=== PATIENT | male | born 1950 | race Caucasian/White ===

== ENCOUNTER 2023-03-02 09:42 | Outpatient (CLI) | payer MEDICARE, BC, SELFPAY ==
[2023-03-02 10:29] LABS: Appearance Urine Clear (Clear); Bilirubin Urine Negative (Negative); Blood Urine Negative (Negative); Color Urine Yellow (Yellow); Glucose Urine UA Negative (Negative); Ketones Urine Negative (Negative); Leukocyte Esterase Ur Negative LEU/UL (NEGATIVE); Nitrate Urine Negative (Negative); Protein Urine Negative (Negative); Specific Grav Ur 1.024 (1.001-1.035); Urobilinogen Urine 0.2 mg/dL (<2.0)
[2023-03-02 10:38] LABS: Add Urine Microscopic? NO
[2023-03-02 12:18] LABS: Alanine Aminotransferase 36 U/L (6-50); Albumin Level 4.9 g/dL (3.5-5.1); Alkaline Phosphatase 41 U/L (38-126); Anion Gap 10 mmol/L (8-16); Aspartate Amino Transferase 44 U/L (17-59); Blood Urea Nitrogen 21 mg/dL (9-20); Calcium 9.1 mg/dL (8.4-10.2); Carbon Dioxide 28 mmol/L (22-30); Chloride 99 mmol/L (98-107); Cholesterol 124 mg/dL (0-200); Estimated Glomerular Filt Rate > 60; Glucose 146 mg/dL (65-110); HDL Direct 30 mg/dL; Potassium 4.3 mmol/L (3.4-5.0); Sodium 137 mmol/L (137-145); Triglycerides 136 mg/dL (<150)
[2023-03-02 12:35] LABS: LDL Cholesterol Direct 72 mg/dL
[2023-03-02 12:52] LABS: Thyroid Stimulating Hormone 0.758 uIU/mL (0.465-4.680)
[2023-03-02 13:27] LABS: Folic Acid 17.8 ng/mL (2.76->20)
== END 2023-03-02 09:43 | disposition home or self-care (01) ==
LOC: ANHLAB 09:47
PROVIDERS: PCP Family Medicine; Visit Provider Nurse Practitioner Family
DX: R73.01 Impaired fasting glucose (principal); I10 Essential (primary) hypertension; E78.2 Mixed hyperlipidemia; R35.1 Nocturia
CPT/HCPCS: 36415; 80048; 80061; 80076; 81003; 82607; 82746; 83036; 84153; 84443

== ENCOUNTER → 2024-10-17 15:53 | Outpatient (CLI) | payer MEDICARE, BC, SELFPAY ==
--- NOTE | ~2024-10-17 | XR_ITS ---
XR hand RT min 3V Ordering provider: Adalberto Mclain MD History: . M79.641 - Pain in right hand . Comparison: None. FINDINGS: BONES: No acute fracture or dislocation. Cystic area in the capitate bone. Periarticular osteopenia. JOINT SPACES: Narrowing of the proximal and distal interphalangeal joints. Erosive changes seen in th e distal epiphysis of the proximal phalanx of the middle finger similar appearances seen in the dista l interphalangeal joints. SOFT TISSUES: Normal. IMPRESSION: No acute osseous abnormality right hand. Polyarticular narrowing of the joint spaces with erosive changes which may indicate erosive osteoarth ritis versus rheumatoid arthritis. Clinical correlation and further evaluation advised. Reviewed, dictated and finalized at location A. IMPRESSION: No acute osseous abnormality right hand. Polyarticular narrowing of the joint spaces with erosive changes which may gianluca serena erosive osteoarthritis versus rheumatoid arthritis. Clinical correlation a nd further evaluation advised.
--- OUTSIDE RECORDS SUMMARY | 2024-10-17 17:05 | XMS_ITS | Clinical Summary ---
Author Organization [facility] Address Formerly [facility] [place] [address] Care Team Providers Care Family Medicine Physician Assistant Name Role Phone Adalberto Mclain MD Primary Care Provider Allergies Active Allergy Reactions Criticality Noted Date Comments Aspirin Sneezing 07/10/2023 Medications COMBIGAN 0.2-0.5 % ophthalmic solution INT 1 GTT IN OU BID 5 02/26/2019 Active AZOPT 1 % ophthalmic suspension INT 1 GTT INTO LEFT EYE BID UTD 5 10/12/2018 Active dutasteride 0.5 MG capsule TAKE ONE CAPSULE BY MOUTH ONCE A DAY 11 03/10/2019 Active LOTEMAX 0.5 % ophthalmic gel INT 1 GTT CARLITOS TID 1 12/26/2018 Active simvastatin 40 MG tablet Take 40 mg by mouth nightly at bedtime. 11 03/09/2019 Active Active Problems No known active problems Immunizations Immunization Administration Dates Next Due Tdap (Boostrix) 07/10/2023 Family History Medical History Relation Comments Suicide Brother 1 Pancreatic Cancer Brother 2 Coronary artery disease Brother 3 Heart Attack Father Diabetes Mother Hypertension Mother Stroke Mother Hyperlipidemia Sister Hypertension Sister Lupus Sister Stroke Sister Relation Status Comments Brother 1 Brother 2 Brother 3 Father Mother Sister Social History Tobacco Use Types Packs/Day Years Used Date Smoking Tobacco: Former Smokeless Tobacco: Never Tobacco Cessation:Counseling Given: Not Answered Alcohol Use Standard Drinks/Week Comments No 0 (1 standard drink = 0.6 oz pur e alcohol) AUDIT-C Answer Date Recorded Frequency of Alcohol Consumption Never 04/24/2019 Average Number of Drinks Not on file 019 Frequency of Binge Drinking Not on file 03/28 Sex and Gender Information Value Date Recorded Sex Assigned at Not on file Legal Sex Male 6:31 PM CDT Gender Identity Not on file Sexual Orientation Not on file Last Filed Vital Signs Vital Sign Reading Time Taken Comments Blood Pressure 132/79 07/10/2023 3:30 PM VINYL DIPPER Pulse 91 07/10/2023 3:30 PM VINYL DIPPER Temperature 36.1 C (97 F) 07/10/2023 2:59 PM VINYL DIPPER Respiratory Rate 18 07/10/2023 3:30 PM VINYL DIPPER Oxygen Saturation 94% 07/10/2023 3:30 PM VINYL DIPPER Inhaled Oxygen Concentration - - Weight 81.4 kg (179 lb 7.3 oz) 07/10/2023 2:59 P M VINYL DIPPER Height 177.8 cm (5' 10 ) 07/10/2023 2:59 PM VINYL DIPPER Body Mass Index 25.75 07/10/2023 2:59 PM VINYL DIPPER Plan of Treatment Health Maintenance Due Date Last Done Comments Diabetes: Retinopathy Eye Exam 1970 Hepatitis C 1970 Pneumococcal Vaccine: 50+ Years (1 of 2 - PCV) 12/13/1971 Zoster Vaccines (1 of 2) 2002 Annual Medicare Wellness Visit 2017 COVID-19 Vaccine (3 - 2023-2 5 season) 2024 09/04/2020, 08/07/2020 Hemoglobin A1C 05/09/2024 11/07/2023, 06/28/2023, 03/09/2021 Kidney Health Evaluation 11/06/2024 11/07/2023 Lipid Panel 11/06/2024 11/07/2023, 03/09/2021, 11/28/2017 RSV Immunization or 60+ Years (1 - 1-dose 75+ series) 12/13/2027 Colorectal Cancer Screening Colonoscopy (10 Years) 05/01/2029 05/01/2019 DTaP, Tdap and Td Vaccines ( 2 - Td or Tdap) 07/10/2033 07/10/2023 Meningococcal B Vaccine Aged Out No l onger eligible based on patient's age to complete this topic Meningococcal Vaccine Aged Out No antonio arvin eligible based on patient's age to complete this topic RSV Immunizations Under 20 Months Aged Out No longer eligible b ased on patient's age to complete this topic Procedures Procedure Name Priority Date/Time Associated Diagnosis Comments LIPID PANEL Routine 11/07/2023 8:35 AM CDT Inadequately controlled diabetes mellitus Mixed hyperlipidemia HEMOGLOBIN, GLYCOSYLATED Routine 11/07/2023 8:35 AM CDT Inadequately controlled diabetes mellitus Mixed hyperlipidemia from Last 3 Months or Most Recently Relevant to Health Maintenance Results * (ABNORMAL) HEMOGLOBIN, GLYCOSYLATED (11/07/2023 8:35 AM CDT) HGB A1C 6.3(H) <5.7 % 11/07/2023 9:18 AM CDT [facility] Comment: INCREASED RISK OF DIABETES <5.7% NON-DIABETES 5.7-6.4% INCREASED RISK FOR FUTURE DIABETES > OR = 6.5 CONSISTENT WITH DIABETES STANDARDS OF MEDICAL CARE IN DIABETES-2010 DIABETES CARE, 33(SUPP 1): S1-S61,2010 ESTIMATED AVG GLUCOSE 134 mg/dL 11/07/2023 9:18 AM CDT [facility] 11/07/2023 8:35 AM CDT us Adalberto Mclain MD LABORATORY Final Resul t [facility] [address] [place] [address], [place] [phone] * LIPID PANEL (11/07/2023 8:35 AM CDT) CHOLESTEROL 110 <200.0 MG/DL 11/07/2023 9:31 AM CDT [facility] TRIGLYCERIDES 70 <150 MG/DL 11/07/2023 9:31 AM CDT [facility] HDL 42 >40.0 MG/DL 11/07/2023 9:31 AM CDT [facility] LDL (CALCULATED) 54 <100 MG/DL 11/07/19 9:31 AM CDT [facility] NON HDL CHOLESTEROL 68 <130 MG/DL 11/06 9:31 AM CDT [facility] CHOL/HDL RATIO 2.6 0.0 - 4.5 11/07/2023 9:31 AM CDT [facility] VLDL CALCULATION 14 5 - 55 MG/DL 11/07/2023 9:31 AM CDT [facility] LIPID INTERPRETATION 11/07/2023 9:31 AM CDT [facility] Comment: [facility] CONCENSUS REPORT RECOMMENDATIONS: ADULT CHILD LOW RISK: CHOLESTEROL <200 <170 TRIGLYCERIDE <150 --- HDL >=60 --- LDL <100 <110 BORDERLINE: CHOLESTEROL 200-239 170-199 TRIGLYCERIDE 150-199 --- HDL 40-59 --- LDL 100-159 110-129 HIGH RISK: CHOLESTEROL >=240 >=200 TRIGLYCERIDE >=200 --- HDL <40 --- LDL >=160 >=130 11/07/2023 8:35 AM CDT us Adalberto Mclain MD LABORATORY Final Resul t [facility] [address] [place] [address], from Last 3 Months or Most Recently Relevant to Health Maintenance Insurance MEDICARE [facility] Care Teams Family Medicine Physician Assistant Relationship Specialty Start Date End Date Adalberto Mclain MD PCP - General FAMILY PRACTICE 01/10/19
--- OUTSIDE RECORDS SUMMARY | 2024-10-17 17:05 | XMS_ITS | Continuity of Care Document ---
Author Organization [facility] Address [address] [address] [place] [address] Phone Care Team Providers Care Corporate Scheduler Name Role Phone Parth OD, Roland Unavailable Unavailable Allergies, Adverse Reactions, Alerts Substance Reaction Status Criticality No Known Allergies Active No Inform ation Medications Medication Instructions Dosage Effective Dates (start - stop) Status Comments Lotemax 0.5 % eye gel drops instill 1 drop 3x daily left eye & 1x daily right eye. - Active Combigan 0.2 %-0.5 % eye drops instill 1 drop by ophthalmic route 2 times every day into both eyes 1 drop - Active Azopt 1 % eye drops,suspension instill 1 drop by ophthalmic route 2 times every day into left eye - Active Ocuvite Adult 50 Plus 250 mg (90 mg-160 mg) capsule - Active CoQ-10 100 mg capsule - Active metformin 500 mg tablet take 1 tablet by oral route 2 times every day with morning and evening meals 500 MG - Active simvastatin 10 mg tablet take 1 tablet by oral route every day in the evening 10 MG - Active dutasteride 0.5 mg capsule take 1 capsule by oral route every day 0.5 MG - Active Procedures Procedure Date FUNDUS PHOTOGRAPHY REFRACTION CL Exam Level 2 C EYE EXAM & TREATMENT FUNDUS PHOTOGRAPHY CL Exam Level 1 C EYE EXAM & TREATMENT CL Exam Level 1 C EYE EXAM ESTABLISHED PAT CL Exam Level 1 C POSTOP FOLLOW-UP VISIT Drivers LIcense Form POSTOP FOLLOW-UP VISIT POSTOP FOLLOW-UP VISIT POSTOP FOLLOW-UP VISIT POSTOP FOLLOW-UP VISIT REVISE EYE SHUNT REPOSITION INTRAOCULAR LENS SPECIAL EYE EVALUATION GDX Optic Nerve EYE EXAM & TREATMENT Advance Directives Directive Yes / No Effective Date File Name No Information Encounters Encounter Description Practice Location Reason(s) For Visit Diagnoses Date Provider Providers Copied on Encounter [facility], [address] [place] [address], [address] [place] [address], tel:[phone] [facility] No Information 5 Parth Watkins. [address] [place] [address], [facility], . tel:[phone] [facility], [address] [place] [address], [id number], tel:[phone] [facility] blurry vision (chief complaint)D iabetic eye exam (chief complaint)G laucoma (chief complaint) Age-related nuclear cataract, right eyeIrregular astigmatism, bilateralCorn eal transplant statusPrimary open-angle glaucoma, bilateral, moderate stagePresence of intraocular lensKeratocon us of right eye 5 Parth Watkins. [address] [place] [address], [id number], [place]. tel:[phone] [facility], [address] [place] [address], [id number], tel:[phone] [facility] blurry vision (chief complaint)D iabetes Mellitis (chief complaint)G laucoma (chief complaint) Primary open-angle glaucoma, bilateral, moderate stageAge-rela epifanio nuclear cataract, right eyeKeratoconu s of right eyeCorneal transplant statusIrregul ar astigmatism, bilateralPres ence of intraocular lensType 2 diabetes mellitus without complications [address], [address], [place]. tel:[phone] [facility], [address] [place] [address], [id number], tel:[phone] [facility] Contact lens evaluation (chief complaint)b lurry vision (chief complaint) Keratoconus of right eyeIrregular astigmatism, bilateralPrim jevon open-angle glaucoma, bilateral, moderate stagePresence of intraocular lensCorneal transplant statusAge-rel ated nuclear cataract, right eye 1 Parth Watkins. [address] [place] [address], [id number], [place]. tel:[phone] [facility], [address] [place] [address], [id number], tel:[phone] [facility] 1 month post-op (chief complaint)b lurry vision (chief complaint) Presence of intraocular lensEncounter for other specified surgical aftercareKera toconus of right eyeIrregular astigmatism, bilateral 0 Parth Romeroig. [address] [place] [address], [address], [place]. tel:[phone] [facility], [address] [place] [address], [id number], tel:[phone] [facility] Post-Op (chief complaint) Encounter for other specified surgical aftercareCorn eal transplant statusKeratoc onus of right eyePresence of intraocular lensPrimary open-angle glaucoma, bilateral, moderate stage [address] [facility]. [address] [place] [address], [address], [place]. tel:[phone] [facility], [address] [place] [address], [id number], [place] tel:[phone] [facility] post op (chief complaint) Encounter for other specified surgical aftercare 0 Ryleyasif Cesario. [address] [place] [address], [address], [place]. tel:[phone] [facility], [address] [place] [address], [id number], [place] tel:[phone] [facility] No Information 0 James Nassar. [address] [place] [address], [address], . tel:[phone] [facility], [address] [place] [address], [id number], tel:[phone] [facility] Glaucoma (chief complaint)d ouble vision (chief complaint) Primary open-angle glaucoma, bilateral, moderate stagePresence of intraocular lensKeratocon us of right eyeCorneal transplant status 0 James Nassar. [address] [place] [address], [id number], . tel:[phone] Referring Provider: Cesario Acharya, [address] [place] [address], [id number]. tel:[phone] [facility], [address] [place] [address], [id number], [place] tel:[phone] [facility] PresbyopiaKer atoconus, stable, right eyePrimary open-angle glaucoma, bilateral, moderate stagePresence of intraocular lensCorneal transplant status 9 Parth Watkins. [address] [place] [address], [address], [place]. tel:[phone] [facility], [address] [place] [address], [id number], [place] tel:[phone] [facility] Keratoconus, stable, right eyePrimary open-angle glaucoma, bilateral, moderate stageAge-rela epifanio nuclear cataract, right eyeCorneal transplant status 8 Parth Watkins. [address] [place] [address], [id number], [place]. tel:[phone] [facility], [address] [place] [address], [id number], [place] tel:[phone] [facility] Keratoconus, stable, right eyePrimary open-angle glaucoma, moderate stageCorneal transplant statusPresbyo piaAge-relate d nuclear cataract, right eye Sep- 7 Sorce Roland. [address] [place], [address], [place]. tel:[phone] [facility], [address] [place] [address], [id number], [place] tel:[phone] [facility] PresbyopiaKer atoconus, stable, right eyeCorneal transplant statusPrimary open-angle glaucoma, moderate stage 6 Sorce Roland. [address] [place], [address], [place]. tel:[phone] [facility], [address] [place] [address], [id number], [place] tel:[phone] [facility] KERATOCONUS, STABLECORNEA TRANSPLANT STATUS 5 Sorce Roland. [address] [place], [address], [place]. tel:[phone] [facility], [address] [place] [address], [id number], [place] tel:[phone] [facility] REGULAR ASTIGMATISMCO RNEA TRANSPLANT STATUSKERATOC ONUS, STABLE 5 Sorbetty Romeroig. [address] [place], [address], [place]. tel:[phone] [facility], [address] [place] [address], [id number], [place] tel:[phone] [facility] PRIM OPEN ANGLE GLAUCOMACORNE A TRANSPLANT STATUSKERATOC ONUS, STABLESTEROID RESPONDERS 3 No Information [facility], [address] [place] [address], [id number], [place] tel:[phone] [facility] PRIM OPEN ANGLE GLAUCOMACORNE A TRANSPLANT STATUSKERATOC ONUS, STABLESTEROID RESPONDERS 0 3 No Information [facility], [address] [place] [address], [place], [place], [id number], tel:[phone] [facility] PRIM OPEN ANGLE GLAUCOMA 2 3 No Information [facility], [address] [place] [address], [id number], tel:[phone] [facility] SURGERY FOLLOW-UP - 3 No Information [facility], [address] [place] [address], [id number], tel:[phone] [facility] SURGERY FOLLOW-UP 3 No Information [facility], [address] [place] [address], [id number], tel:[phone] [facility] SURGERY FOLLOW-UP 3 No Information [facility], [address] [place] [address], [place], [place], [id number], tel:[phone] [facility] SURGERY FOLLOW-UP 3 No Information [facility], [address] [place] [address], [place], [place], [id number], tel:[phone] [facility] SURGERY FOLLOW-UP 3 No Information [facility], [address] [place] [address], [place], [place], [id number], tel:[phone] [facility] PRIM OPEN ANGLE GLAUCOMALENS REPLACEMENT NECKERATOCONU S, STABLECORNEA TRANSPLANT STATUS 3 No Information Family History Family Member Type Diagnosis Age At Onset Brother Problem (finding) Fhx of cancer Father Problem (finding) Fhx of cardiovascular d isease Mother Problem Diabetes mellitus Payers Payer name Insurance type Covered democrat ID Authoriza tion(s) No Information Social History Type Description Quantity Date Captured Comments Sex Male Smoking Status No Information Chief Complaint And Reason For Visit No Information Reason For Referral Reason For Referral No Information Plan Of Treatment Date Type Action Status Appointment Checo Travis BOOKED History Of Present Illness Encounter Date Complaint History Of Prese nt Illness blurry vision The 73 year old patient presents for evaluation of blurry vision in the right eye and left eye. Pt reports vision and comfort not great. Affects distance. Down to driving in the day only. Wears RGP OD only. Wears glasses Rx over. Hx of Keratoconus. The symptom is constant. The condition is moderate. Diabetic eye exam The patient is present for evaluation of Diabetic eye exam in the right eye and left eye. Pt see's Dr. Mclain for AODM. Last visit was over a year ago. A1c was 6.1? BS dosn't check. Taking metformin for relief. The symptom is constant. The condition is mild. Glaucoma The patient is p resent for evaluation of Glaucoma in the right eye and left eye. Pt followed by Dr. Marie. Compliant with drops. Takes Combigan BID OU, took this morning @ 6am and 9;30pm. Takes Azopt BID OS only took @ 9:30am and 9:30pm. Taking Lotemax for cornea TID OS, and Qd in OD for comfort. The symptom is constant. The condition is moderate. blurry vision The 72 year old male presents for evaluation of blurry vision in the right eye. Blurred for many years. Mostly affects distance. Mild change in [place] OD. Glaucoma The patient is p resent for evaluation of Glaucoma in the right eye and left eye. Treated for many years. Pt using Azopt OS BID & Combigan OU BID w/ last doses Azopt OS 10:00am & Combigan OU appr 10:30 am. Pt denies missing any doses gtts. Diabetes Mellitis Dx'd 6 months ago. Pt is NIDDM & though A1C unknown, blood sugar getting better per pt's PCP who treats pt's diabetes (Adalberto Connolly M.D. in [facility]) Pt hasn't seen Dr. Marie in past 8 months. Contact lens evaluation The 69 y ear old male presents for evaluation of Contact lens evaluation in the right eye, for many years. Patient happy with current RGP OD. Patient denies vision changes. Patient denies pain, irritation, redness. blurry vision both eyes, yrs, moderate to severe, OS>OD, constant, hx of kcone/x plant etc, sees dr marie for cornea and coag 1 month post-op The 68 year old male presents for evaluation of 1 month post-op in the left eye. Pt states vision slightly improved. Combigan BID OU@8am, Azopt BID OS@9am. prolensa QD blurry vision both eyes, needs DMV for filled out, cl exam and new glasses seem wrong over cls. Post-Op Additional infor jeny: IOL reposition, revision of glaucoma implant. post op IOL reposition, revision of glaucoma implant Glaucoma in the right eye and left eye. It started about 5 year(s) ago. The symptom is constant. The condition is moderate. REFERRED by Dr. Marie - may need tube in left eye trimmed. double vision monocular diplop ia left eye Functional Status Date Functional Assessmen t No Information Instructions Date Instruction Additional Infor jeny Impression/Plan Related to Prima ry open-angle glaucoma, bilateral, moderate stage Impression/Plan Related to Prese nce of intraocular lens Impression/Plan Related to Kerat oconus of right eye Impression/Plan Related to Corne al transplant status Impression/Plan Related to Irreg ular astigmatism, bilateral Impression/Plan Related to Age-r elated nuclear cataract, right eye Rtn [address] Alba for Optos and CL exam/OPD Related to Type 2 diabetes mellitus without complications Impression/Plan Related to Prese nce of intraocular lens Impression/Plan Related to Irreg ular astigmatism, bilateral Impression/Plan Related to Corne al transplant status Impression/Plan Related to Kerat oconus of right eye Impression/Plan Related to Age-r elated nuclear cataract, right eye Impression/Plan Related to Prima ry open-angle glaucoma, bilateral, moderate stage Impression/Plan Related to Type 2 diabetes mellitus without complications Rtn [address] Alba for Optos and CL exam Related to Age-related nuclear cataract, right eye Impression/Plan Related to Corne al transplant status Impression/Plan Related to Prese nce of intraocular lens Impression/Plan Related to Prima ry open-angle glaucoma, bilateral, moderate stage Impression/Plan Related to Irreg ular astigmatism, bilateral Impression/Plan Related to Kerat oconus of right eye Impression/Plan Related to Age-r elated nuclear cataract, right eye Impression/Plan Related to Irreg ular astigmatism, bilateral Impression/Plan Related to Kerat oconus of right eye Impression/Plan Related to Encou nter for other specified surgical aftercare Impression/Plan Related to Prima ry open-angle glaucoma, bilateral, moderate stage Impression/Plan Related to Encou nter for other specified surgical aftercare Impression/Plan Related to Corne al transplant status Impression/Plan Related to Kerat oconus of right eye Impression/Plan Related to Prese nce of intraocular lens Impression/Plan Related to Encou nter for other specified surgical aftercare Impression/Plan Related to Prima ry open-angle glaucoma, bilateral, moderate stage Impression/Plan Related to Prese nce of intraocular lens Impression/Plan Related to Kerat oconus of right eye Impression/Plan Related to Corne al transplant status Assessments Type Assessment Date No Information Patient Care Teams Name Effective Dates (start - stop) Status Members No Information
== END ==
PROVIDERS: PCP Family Medicine; Visit Provider Family Medicine
DX: M15.4 Erosive (osteo)arthritis (principal); M06.9 Rheumatoid arthritis, unspecified
CPT/HCPCS: 73130